=== PATIENT | male | born 1955 | race Two or more races ===

== ENCOUNTER 2017-04-30 03:10 | Inpatient (IN) | payer OTHER ==
[~2017-04-30] VITALS: Ht 185.4 cm; Wt 106.6 kg
--- NOTE | 2017-04-30 03:10 | NUR ---
RN ADMITTING NOTES PATIENT BROUGHT INTO THE UNIT VIA GURNEY, ACCOMPANIED BY 2 PERSONNEL OF [facility], PT IS A DIRECT ADMIT FORM [facility] WITH DX: COPD EXACERBATION. PATIENT NOTED TO BE IN NO ACUTE DISTRESS AT THIS TIME, ALERT AND ORIENTED X 4, NO SOB, BREATHING EVEN AND UNLABORED IN ROOM AIR. UPON AUSCULTATION OF LUNGS, NOTED PATIENT WITH SOME WHEEZING ON RIGHT UPPER LOBE. ORIENTED PT TO FACILITY, ROOM, CALL LIGHT AND ADMISSION PROCESS AND PT VERBALIZED UNDERSTANDING. PATIENT REFUSED SKIN TO BE CHECKED BUT AGREED TO DOCUMENT ABDOMINAL HERNIA. ALL PATIENT'S NEEDS ATTENDED TO AT THIS TIME. WILL CONTINUE TO MONITOR PT.
[2017-04-30] MEDS ORDERED: FLUT1DIS5 INH (03:38)
[2017-04-30] MEDS ORDERED: BECL8.7A6 IH (03:38)
--- NOTE | 2017-04-30 03:45 | NUR ---
RN NOTE DR. TOLENTINO CALLED AND INFORMED OF PT'S ADMISSION AND NEEDS. RECEIVED ADMISSION ORDERS, ALL ORDERS NOTED AND CARRIED OUT. WILL CONTINUE TO MONITOR PT.
[2017-04-30] MEDS ORDERED: ACETAMINOPHEN 325 MG TABLET PO PRN (04:00)
[2017-04-30] MEDS ORDERED: AZITHROMYCIN 500 MG in IV D5W 250 ML IV SCH (04:00)
[2017-04-30] MEDS ORDERED: ONDANSETRON HCL/PF 4 MG/2 ML VIAL IVP PRN (04:00)
[2017-04-30] MEDS ORDERED: GUAIFENESIN LA 600 MG TABLET.SA PO ONE (04:00)
--- NOTE | 2017-04-30 04:15 | NUR ---
RN NOTE DR TOLENTINO MADE AWARE OF PATIENT'S ALLERGY TO PCN, PER MD WALTON TO GIVE ROCEPHIN.
[2017-04-30] MEDS ORDERED: ALBUTEROL FS 2.5 MG/0.5 ML VIAL.NEB NEB ONE (04:30)
[2017-04-30] MEDS ORDERED: IPRATROPIUM NEB FS 0.5 MG/2.5 ML AMPUL.NEB NEB ONE (04:30)
[2017-04-30] MEDS ORDERED: methylPREDNISolone SOD SUCC 125 MG/2ML VIAL IV ONE (04:30)
[2017-04-30] MEDS ORDERED: CEFTRIAXONE 1 G VIAL ONE (04:31)
[2017-04-30] MEDS: CEFTRIAXONE 1 G in IV D5W 50 ML IV SCH (04:43)
[2017-04-30 04:50] VITALS: BP 134/83
--- NOTE | 2017-04-30 05:00 | NUR ---
RN NOTE ROCEPHIN IV ATB DOSE CURRENTLY INFUSING, PT NOTED WITH NO ASE, NO RASHES, NO SOB, AFEBRILE AND NO N/V. WILL CONTINUE TO MONITOR.
[2017-04-30] MEDS ORDERED: AZITHROMYCIN 500 MG VIAL ONE (05:05)
[2017-04-30 05:11] LABS: ABG BASE EXCESS -1.9 mmol/L; ABG OXYGEN SATURATION 94.2 % (92.0-98.5); ABG PCO2 30.3 mmHg (35.0-45.0); ABG PH 7.457 (7.350-7.450); AaDO2 40.4 mmHg; COHb 0.4 % (0.5-1.5); MetHb 0.2 % (0.0-1.5); O2Hb 93.6 % (94.0-97.0); SITE, ABG Right Radial; VENT MODE, BG ROOM AIR
[2017-04-30 06:51] LABS: BASOPHILS % (AUTO) 0.2 % (0.0-2.0); EOSINOPHILS % (AUTO) 0.1 % (0.0-6.0); HEMATOCRIT 38 % (39-51); HEMOGLOBIN 12.9 g/dL (13.5-17.5); LYMPHOCYTES # (AUTO) 0.3 /CMM (0.8-4.8); LYMPHOCYTES % (AUTO) 4.1 % (20.0-44.0); MEAN CORPUSCULAR HEMOGLOBIN 29 PG (26.0-33.0); MEAN CORPUSCULAR HGB CONC 34 g/dl (31.0-36.0); MEAN CORPUSCULAR VOLUME 85 fL (80-96); MONOCYTES # (AUTO) 0.1 /CMM (0.1-1.30); MONOCYTES % (AUTO) 1.2 % (2.0-12.0); NEUTROPHILS # (AUTO) 7.9 /CMM (1.8-8.9); NEUTROPHILS % (AUTO) 94.4 % (43.0-81.0); PLATELET COUNT (AUTO) 204 /CMM (150-450); RDW COEFFICIENT OF VARIATION 13.3 (11.5-15.0); RED BLOOD CELL COUNT(AUTO) 4.44 MIL/uL (4.5-6.0); WHITE BLOOD COUNT (AUTO) 8.3 K/uL (4.3-11.0)
--- NOTE | 2017-04-30 06:57 | NUR ---
RN CLOSING NOTE PATIENT IN BED, ASLEEP, EASILY AROUSABLE, COMFORTABLE, NO SOB NOTED, BREATHING EVEN AND UNLABORED, IN NO ACUTE DISTRESS AT THIS TIME. ALL PATIENT'S NEEDS ATTENDED TO. PT ON TELE MONITORING WITH SR @75 BPM. RT DEPT CALLED REGARDING BREATHING TX SCHEDULED, SPOKE WITH KATE, AWARE OF ORDERS. WILL ENDORSE TO AM SHIFT NURSE FOR CONTINUITY OF CARE.
--- NOTE | 2017-04-30 07:05 | NUR ---
RN OPENING NOTES RECEIVED PATIENT IN BED RESTING, A/OX4. NO ACUTE DISTRESS, NO SOB. DENIES PAIN OR DISCOMFORT AT THIS TIME. ON TELEMONITORING, SR 86. IV SITE INTACT AND PATENT. KEPT PATIENT SAFE AND COMFORTABLE IN BED. BED IN LOW/LOCKED POSITION, SIDERAILS UPX2, HOB ELEVATED, CALL LIGHT IN REACH, WILL CONTINUE TO MONITOR ACCORDINGLY.
[2017-04-30] MEDS: ALBUTEROL FS 2.5 MG/0.5 ML VIAL.NEB NEB SCH ×3 (07:11→20:28)
[2017-04-30] MEDS: IPRATROPIUM NEB FS 0.5 MG/2.5 ML AMPUL.NEB NEB SCH ×3 (07:11→20:28)
[2017-04-30 07:21] LABS: ALBUMIN 3.2 g/dL (3.4-5.0); BILIRUBIN,TOTAL 0.6 mg/dL (0.2-1.0); CALCIUM, SERUM 9.4 mg/dL (8.5-10.1); CREATININE 1.1 mg/dL (0.6-1.3); MAGNESIUM 2.4 mg/dL (1.8-2.4); PHOSPHORUS 3.5 mg/dL (2.5-4.9); POTASSIUM 5.3 mmol/L (3.5-5.1)
--- NOTE | 2017-04-30 08:00 | NUR ---
RN NOTES BLOOD GLUCOSE 429, DR DONOHUE MADE AWARE.
[2017-04-30 08:09] VITALS: BP 103/59
[2017-04-30] MEDS: HYDROCODONE/APAP 5/325MG 1 EACH TABLET PO PRN ×2 (08:10→12:59)
[2017-04-30] MEDS: PANTOPRAZOLE 40 MG VIAL IV SCH (08:11)
[2017-04-30] MEDS: methylPREDNISolone SOD SUCC 125 MG/2ML VIAL IV SCH ×3 (10:06→17:59)
--- NOTE | 2017-04-30 10:46 | NUR ---
RN NOTES DR DONOHUE ON BEDSIDE TALKING TO PATIENT.
--- NOTE | 2017-04-30 10:47 | NUR ---
RN NOTES PER DR DONOHUE, PUT PATIENT ON AGGRESSIVE SLIDING SCALE.
[2017-04-30 12:00] VITALS: BP 116/70
[2017-04-30] MEDS ORDERED: *INSULIN REGULAR(HUMULIN R)HUM 100 UNIT/ML VIAL SQ PRN (12:30)
[2017-04-30] MEDS ORDERED: INSULIN REGULAR, HUMAN 100 UNIT/ML 3 ML VIAL SQ PRN (12:30)
[2017-04-30] MEDS ORDERED: BLOOD SUGAR DIAGNOSTIC 1 EACH STRIP IN SCH (12:30)
[2017-04-30] MEDS ORDERED: DEXTROSE 50%-WATER 50 ML DISP.SYRIN IV PRN ×2 (12:30)
[2017-04-30] MEDS: BLOOD SUGAR DIAGNOSTIC 1 EACH STRIP IN SCH ×3 (13:00→22:08)
[2017-04-30] MEDS: *INSULIN REGULAR(HUMULIN R)HUM 100 UNIT/ML VIAL SQ PRN ×2 (13:04→22:13)
--- NOTE | 2017-04-30 13:24 | NUR ---
RN NOTES BS 434, [address] DONOHUE MADE AWARE.
[2017-04-30] MEDS: HYDROMORPHONE INJ 0.5 MG/0.5 ML SYRINGE IV PRN ×2 (14:46→19:45)
[2017-04-30 16:00] VITALS: BP 124/75
[2017-04-30] MEDS: INSULIN REGULAR, HUMAN 100 UNIT/ML 3 ML VIAL SQ PRN (18:16)
--- NOTE | 2017-04-30 19:15 | NUR ---
RN CLOSING NOTES PATIENT IN BED RESTING. NO ACUTE DISTRESS, NO SOB NOTED. ALL NEEDS ATTENDED AND PROVIDED. KEPT PATIENT SAFE AND COMFORTABLE. BED IN LOW/LOCKED POSITION, SIDERAILS UPX2, CALL LIGHT IN REACH. ENDORSED TO NIGHT RN FOR KISHAN.
--- NOTE | 2017-04-30 19:30 | NUR ---
RN OPENING NOTES RECEIVED REPORT FROM DAYSWAFT JOSEPH EDGAR. FOUND Pt AWAKE, RESTING IN BED, WATCHING TV. NO S/S OF ACUTE DISTRESS OR SOB NOTED. Pt IS A/OX4, VERBAL, ABLE TO MAKE NEEDS KNOWN. Pt C/O PAIN 01/02. WILL ADMINISTER PAIN MED WHEN TIME IS DUE. IV ACCESS ON [facility], TKO. SAFETY MEASURES IN PLACE. WILL CONTINUE TO MONITOR Pt THROUGHOUT THE NIGHT FOR SAFETY. BED LOW, LOCKED, HOB ELEVATED, SIDE RAILS UP, CALL LIGHT AND BEDSIDE TABLE WITHIN REACH. WILL CONTINUE TO MONITOR Pt THROUGHOUT THE NIGHT FOR SAFETY.
[2017-04-30 19:54] VITALS: BP 117/71
[2017-04-30 20:00] VITALS: BP 117/71
--- NOTE | 2017-04-30 22:00 | NUR ---
RN NOTES BG 347. 8UN OF INSULIN GIVEN PER SLIDING SCALE.
[2017-05-01] MEDS: HYDROMORPHONE INJ 0.5 MG/0.5 ML SYRINGE IV PRN ×4 (01:12→13:57)
[2017-05-01] MEDS: IPRATROPIUM NEB FS 0.5 MG/2.5 ML AMPUL.NEB NEB SCH ×3 (01:36→13:29)
[2017-05-01] MEDS: ALBUTEROL FS 2.5 MG/0.5 ML VIAL.NEB NEB SCH ×3 (01:36→13:29)
--- NOTE | 2017-05-01 02:45 | NUR ---
RN NOTES SPOKE WITH DR. TOLENTINO ON THE PHONE. INFORMED THAT THE Pt WAS C/O SOB AND FELT LIKE HE WAS DYING. DR ORDERED PRN Q6H OF MUCOMYST AND ALBUTEROL NEB.
[2017-05-01] MEDS: CEFTRIAXONE 1 G in IV D5W 50 ML IV SCH (03:44)
[2017-05-01] MEDS ORDERED: AZITHROMYCIN 500 MG in IV D5W 250 ML IV SCH (05:00)
--- NOTE | 2017-05-01 06:40 | NUR ---
AC ACCUCHECK 350. ADMINISTERED 16UN OF INSULIN PER AGGRESSIVE SLIDING SCALE.
[2017-05-01] MEDS: BLOOD SUGAR DIAGNOSTIC 1 EACH STRIP IN SCH ×2 (06:41→12:59)
[2017-05-01] MEDS: INSULIN REGULAR, HUMAN 100 UNIT/ML 3 ML VIAL SQ PRN ×2 (06:47→12:59)
--- NOTE | 2017-05-01 06:49 | NUR ---
RN CLOSING NOTES NO SIGNIFICANT CHANGES IN Pt's CONDITION. Pt REMAINS STABLE AT THIS TIME. NO S/S OF ACUTE DISTRESS NOTED DURING THE NIGHT. ALL NEEDS MET AND ATTENDED TO. SAFETY MEASURES IN PLACE. WILL ENDORSE TO DAYSHIFT RN FOR Pt's KISHAN.
[2017-05-01] MEDS ORDERED: ACETYLCYSTEINE 10% SOLN 400 MG/4 ML VIAL NEB PRN (07:30)
[2017-05-01] MEDS ORDERED: ALBUTEROL FS 2.5 MG/3 ML VIAL.NEB NEB PRN (07:30)
[2017-05-01 07:41] LABS: HEMATOCRIT 37 % (39-51); HEMOGLOBIN 12.8 g/dL (13.5-17.5); LYMPHOCYTES # (AUTO) 0.5 /CMM (0.8-4.8); LYMPHOCYTES % (AUTO) 4.2 % (20.0-44.0); MEAN CORPUSCULAR HEMOGLOBIN 29 PG (26.0-33.0); MEAN CORPUSCULAR HGB CONC 35 g/dl (31.0-36.0); MEAN CORPUSCULAR VOLUME 85 fL (80-96); MONOCYTES # (AUTO) 0.8 /CMM (0.1-1.30); MONOCYTES % (AUTO) 7.2 % (2.0-12.0); NEUTROPHILS # (AUTO) 10.2 /CMM (1.8-8.9); NEUTROPHILS % (AUTO) 88.6 % (43.0-81.0); PLATELET COUNT (AUTO) 225 /CMM (150-450); RDW COEFFICIENT OF VARIATION 13.4 (11.5-15.0); RED BLOOD CELL COUNT(AUTO) 4.34 MIL/uL (4.5-6.0); WHITE BLOOD COUNT (AUTO) 11.5 K/uL (4.3-11.0)
--- NOTE | 2017-05-01 07:45 | NUR ---
RN OPENING NOTES RECEIVED PATIENT IN BED RESTING, A/OX4. NO ACUTE DISTRESS, NO SOB. DENIES PAIN OR DISCOMFORT AT THIS TIME. IV SITE INTACT AND PATENT. KEPT PATIENT SAFE AND COMFORTABLE IN BED. BED IN LOW/LOCKED POSITION, SIDERAILS UPX2, HOB ELEVATED, CALL LIGHT IN REACH, WILL CONTINUE TO MONITOR ACCORDINGLY.
[2017-05-01 07:53] LABS: ALBUMIN 3.2 g/dL (3.4-5.0); BILIRUBIN,TOTAL 0.3 mg/dL (0.2-1.0); CALCIUM, SERUM 9.2 mg/dL (8.5-10.1); CREATININE 1.2 mg/dL (0.6-1.3); MAGNESIUM 2.3 mg/dL (1.8-2.4); PHOSPHORUS 3.9 mg/dL (2.5-4.9); POTASSIUM 4.5 mmol/L (3.5-5.1); TOTAL PROTEIN, SERUM 6.7 g/dL (6.4-8.2)
[2017-05-01 08:00] VITALS: BP 109/56
[2017-05-01 08:16] VITALS: BP 109/56
[2017-05-01] MEDS: PANTOPRAZOLE 40 MG VIAL IV SCH (09:21)
[2017-05-01] MEDS: methylPREDNISolone SOD SUCC 125 MG/2ML VIAL IV SCH ×2 (09:22→13:02)
[2017-05-01] MEDS ORDERED: IPRA0.2S9 NEB (13:04)
[2017-05-01] MEDS ORDERED: PRED5TAB48 PO (13:04)
[2017-05-01] MEDS ORDERED: AZIT500T PO (13:04)
[2017-05-01] MEDS ORDERED: PRED50TA PO (13:04)
[2017-05-01] MEDS ORDERED: ALBU2.5V13 NEB (13:04)
[2017-05-01] MEDS ORDERED: PRED20TA PO (13:04)
[2017-05-01] MEDS ORDERED: METF-835 PO (13:04)
--- NOTE | 2017-05-01 15:50 | NUR ---
MINE SURVEYOR NOTES DISCHARGED PATIENT IN STABLE CONDITION ACCOMPANIED BY TALA RUIZ TO THE [facility]. PER PATIENT, HIS FRIEND WILL PICK HIM UP. DISCHARGE INSTRUCTIONS GIVEN, VERBALIZED UNDERSTANDING, PAPERWORK AND PRESCRIPTION GIVEN. ALL BELONGINGS RETURNED, FORMS SIGNED. D/C IV, NO BLEEDING, NO COMPLICATIONS NOTED. REMOVED NAME BAND. Addendum: 05/01/17 at 1852 by TALA LOWE REFUSED PHOTO SINCE HE WAS IN A HURRY.
== END 2017-05-01 15:45 | disposition home health service (06) | DRG 140 ==
LOC: TELE 03:11 → MED 18:36
PROVIDERS: ADMIT Internal Medicine; ATTEND Internal Medicine
DX: J44.1 Chronic obstructive pulmonary disease with (acute) exacerbation (principal); F11.20 Opioid dependence, uncomplicated; F32.9 Major depressive disorder, single episode, unspecified; G89.4 Chronic pain syndrome; J44.0 Chronic obstructive pulmonary disease with (acute) lower respiratory infection; E11.9 Type 2 diabetes mellitus without complications; F41.9 Anxiety disorder, unspecified; F17.200 Nicotine dependence, unspecified, uncomplicated
CPT/HCPCS: 36415; 36600; 80053-TC; 80061-TC; 80305; 82803-TC; 82962-TC; 83735-TC; 84100-TC; 85025-TC; 87081-TC; C9113; J0456; J0696; J1815; J2930; J7040; J7050; J7060

== ENCOUNTER 2018-03-12 09:25 | Emergency (ER) | payer OTHER ==
[~2018-03-12] VITALS: Ht 185.4 cm; Wt 99.8 kg
[~2018-03-12 09:25] MED LIST: ALBU2.5V13 NEB; AZIT500T PO; BECL8.7A6 IH; FLUT1DIS5 INH; IPRA0.2S9 NEB; METF-835 PO; PRED20TA PO; PRED50TA PO; PRED5TAB48 PO
[2018-03-12] MEDS ORDERED: methylPREDNISolone SOD SUCC 125 MG/2ML VIAL ONE (09:53)
[2018-03-12] MEDS ORDERED: ALBUTEROL FS 2.5 MG/3 ML VIAL.NEB ONE (09:54)
[2018-03-12] MEDS ORDERED: IPRATROPIUM NEB FS 0.5 MG/2.5 ML AMPUL.NEB ONE (09:54)
[2018-03-12] MEDS ORDERED: IPRATROPIUM NEB FS 0.5 MG/2.5 ML AMPUL.NEB NEB ONE (10:00)
[2018-03-12] MEDS ORDERED: methylPREDNISolone SOD SUCC 125 MG/2ML VIAL IV ONE (10:00)
[2018-03-12] MEDS ORDERED: ALBUTEROL FS 2.5 MG/3 ML VIAL.NEB CONTNEB ONE (10:00)
--- NOTE | 2018-03-12 10:02 | NUR ---
PT BIB SELF, C/O SOB 15MINS PA, ALERT AND ORIENTED X 4, VERBALLY RESPONSIVE AND ABLE TO MAKE NEEDS KNOWN. ON ROOM AIR SAT 98%, DENIES ANY PAIN AT THIS TIME. IV ACCESS INITIATED. KEPT COMFORTABLE. WILL CONTINUE TO MONITOR ACCORDINGLY. DR. WOODS AT BEDSIDE FOR EVAL.
--- NOTE | 2018-03-12 11:08 | NUR ---
IV removed. Catheter intact and site benign. Pressure and 4x4 applied to site. No bleeding noted.
[2018-03-12 11:28] VITALS: BP 140/84
--- NOTE | 2018-03-12 11:29 | NUR ---
Patient discharged to home in stable condition. Written and verbal after care instructions given. Patient verbalizes understanding of instruction.
== END 2018-03-12 11:29 | disposition home or self-care (01) ==
LOC: ER 09:30
DX: J44.9 Chronic obstructive pulmonary disease, unspecified (principal); E11.9 Type 2 diabetes mellitus without complications; I10 Essential (primary) hypertension; Z72.0 Tobacco use; Z88.0 Allergy status to penicillin
CPT/HCPCS: 94640 ×2; 96374; 99284; A4606; J2930; Z7610